=== PATIENT | male | born 1980 | race Caucasian/White ===

== ENCOUNTER → 2021-07-27 | Outpatient (CLI) | payer BC ==
--- NOTE | 2021-07-12 13:26 | NUR ---
PT CANCELLED THIS AM.
[~2021-07-27] MED LIST: ALLEGRA-D 12 HO1 TER PO; ALTACE5 MG PO; BENICAR40 MG PO; CIPRO 500MG TA500 MG PO; NORVASC 10MG10 MG PO; PERCOCET 5/321 UDTAB PO; TOPROL XL 50MG50 MG PO
[2021-07-27 13:28] VITALS: BP 134/88; PULSE 71; TEMP 98.2
[2021-07-27 14:00] VITALS: BP 151/93; PULSE 67
== END ==
LOC: COL.RAD 07-12 13:00
DX: M54.16 Radiculopathy, lumbar region (principal)
CPT/HCPCS: J3301

== ENCOUNTER → 2022-06-21 | Outpatient (CLI) | payer BC | LOC: MHCPAIN 10:14 | DX: M25.561 Pain in right knee (principal); M54.50 Low back pain, unspecified; M53.3 Sacrococcygeal disorders, not elsewhere classified; M47.817 Spondylosis without myelopathy or radiculopathy, lumbosacral region | CPT/HCPCS: G0463 ==

== ENCOUNTER → 2022-10-26 | Outpatient (CLI) | payer BC | LOC: MHCPAIN 09:39 | DX: M47.817 Spondylosis without myelopathy or radiculopathy, lumbosacral region (principal); M54.50 Low back pain, unspecified | CPT/HCPCS: J0665 ==